=== PATIENT | female | born 1995 | race African-American/Black ===

== ENCOUNTER 2018-08-16 03:49 | Emergency (ER) | payer MEDICAID ==
[~2018-08-16] VITALS: Ht 162.6 cm; Wt 61.6 kg
[2018-08-16 03:51] VITALS: BP 118/70
[2018-08-16] MEDS ORDERED: DIPHTHERIA-TETANUS ADULT 0.5ML IM-VACC ONE (04:00)
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
[2018-08-16] MEDS ORDERED: DIPH,PERTUSS(ACELL),TET VAC/PF 0.5 ML IM-VACC ONE (04:05)
[2018-08-16] MEDS ORDERED: LIDOCAINE-MPF 1%, 2ML ONE (04:46)
--- NOTE | 2018-08-16 04:50 | NUR ---
PT AMB TO BR AND BACK TO ROOM WITH STEADY GAIT.
[2018-08-16] MEDS ORDERED: LIDOCAINE-MPF 1%, 5ML INFIL ONE (05:00)
--- NOTE | 2018-08-16 05:43 | NUR ---
[employer] AT BEDSIDE NOW.
[2018-08-16] MEDS ORDERED: BACITRACIN ZINC OINT 500U/GM, 0.9 GM ONE (05:54)
--- NOTE | 2018-08-16 06:02 | NUR ---
APPLIED BACITRACIN AND BANDAID ON WOUND. PT TOLERATED WELL.
--- NOTE | 2018-08-16 06:04 | NUR ---
PT GIVEN DC INSTRUCTIONS. PT'S AOX4. RESPS EVEN AND UNLABORED. PT AMB TO DC WITH STEADY GAIT. NO ACUTE DISTRESS AT DC.
== END 2018-08-16 06:05 | disposition home or self-care (01) ==
LOC: ED 05:30
DX: S01.81XA Laceration without foreign body of other part of head, initial encounter (principal); Y08.89XA Assault by other specified means, initial encounter; Y93.89 Activity, other specified; Y92.89 Other specified places as the place of occurrence of the external cause; Y99.8 Other external cause status
CPT/HCPCS: 12011; 12051; 90471; 90714; 99285

== ENCOUNTER 2018-08-21 11:34 | Emergency (ER) | payer MEDICAID ==
[~2018-08-21] VITALS: Ht 162.6 cm; Wt 70.0 kg
[2018-08-21 11:36] VITALS: BP 96/54
[2018-08-21] MEDS ORDERED: BACITRACIN ZINC OINT 500U/GM, 0.9 GM ONE (11:56)
== END 2018-08-21 12:03 | disposition home or self-care (01) ==
LOC: ED 11:55
DX: S01.81XD Laceration without foreign body of other part of head, subsequent encounter (principal); X58.XXXD Exposure to other specified factors, subsequent encounter
CPT/HCPCS: 99282

== ENCOUNTER 2019-10-17 09:39 | Emergency (ER) | payer MEDICAID ==
[~2019-10-17] VITALS: Ht 162.6 cm; Wt 74.0 kg
--- NOTE | 2019-10-17 09:55 | NUR ---
patient arrives to ER with n/v and throwing up that began yesterday. she states she is unsure why.
[2019-10-17] MEDS ORDERED: ONDANSETRON ODT 4 MG PO ONE (10:00)
[2019-10-17] MEDS ORDERED: ONDANSETRON ODT 4 MG ONE (10:05)
--- NOTE | 2019-10-17 10:07 | NUR ---
patient mostly refuses to wear mask. asked her politely to please wear a mask as it is our hospital policy. got her a blanket, tissues and medicated as requested. she is unsure of preg status or how many times she has been only aware that she has no children.
[2019-10-17 10:19] LABS: MICROSCOPIC INDICATED
[2019-10-17 10:38] LABS: BASOPHILS # (AUTO) 0.02 x10^3/uL (0-0.1); BASOPHILS % (AUTO) 0 % (0-1); EOSINOPHILS # (AUTO) 0.04 x10^3/uL (0-0.4); EOSINOPHILS % (AUTO) 1 % (1-7); LYMPHOCYTES # (AUTO) 1.51 x10^3/uL (1-3.4); LYMPHOCYTES % (AUTO) 28 % (22-44); MD NO; MEAN CORPUSCULAR HEMOGLOBIN 27.9 pg (27.0-34.8); MEAN CORPUSCULAR HGB CONC 32.8 g/dL (32.4-35.8); MEAN CORPUSCULAR VOLUME 84.8 fL (80-100); MEAN PLATELET VOLUME 9.7 fL (7.4-10.4); MONOCYTES # (AUTO) 0.31 x10^3/uL (0.2-0.8); MONOCYTES % (AUTO) 6 % (2-9); NEUTROPHILS # (AUTO) 3.55 x10^3/uL (1.8-6.8); NEUTROPHILS % (AUTO) 65 % (42-75); PLATELET COUNT 217 x10^3/uL (130-400); RED BLOOD COUNT 5.31 x10^6/uL (3.82-5.3); RED CELL DISTRIBUTION WIDTH 16.7 % (9.6-15.2)
[2019-10-17 10:46] LABS: ALANINE AMINOTRANSFERASE 23 U/L (12-78); ALBUMIN 4.4 g/dL (3.4-5.0); ANION GAP 10 mmol/L (5-15); CALCIUM 9.7 mg/dL (8.5-10.1); CHLORIDE 106 mmol/L (98-107); CREATININE 0.72 mg/dL (0.55-1.02)
[2019-10-17 11:03] LABS: ALKALINE PHOSPHATASE 48 U/L (45-117); BILIRUBIN,TOTAL 0.6 mg/dL (0.2-1.0); TOTAL PROTEIN 8.3 g/dL (6.4-8.2)
--- NOTE | 2019-10-17 11:56 | NUR ---
patient awaiting us
[2019-10-17] MEDS ORDERED: ATOR-2 PO (11:57)
--- NOTE | 2019-10-17 12:57 | NUR ---
PATIENT IN BED AND SIG OTHER IN ROOM. AWAITING ER WORKUP. ZOFRAN HELPED NAUSEA
[2019-10-17 13:12] VITALS: BP 118/78
== END 2019-10-17 13:14 | disposition home or self-care (01) ==
LOC: ED 10:48
DX: O26.891 Other specified pregnancy related conditions, first trimester (principal); O21.9 Vomiting of pregnancy, unspecified; R10.9 Unspecified abdominal pain; Z3A.01 Less than 8 weeks gestation of pregnancy
CPT/HCPCS: 36415; 76801; 80053; 81001; 83690; 84702; 85025; 86901; 99284; Q0162; 84703

== ENCOUNTER 2020-04-07 16:39 | Outpatient (CLI) | payer MEDICAID ==
[~2020-04-07] VITALS: Ht 165.1 cm; Wt 72.7 kg
[~2020-04-07 16:39] MED LIST: ATOR-2 PO
== END 2020-04-07 17:20 | disposition home or self-care (01) ==
LOC: LDOP 16:39
PROVIDERS: ATTEND Obstetrics & Gynecology
DX: Z34.93 Encounter for supervision of normal pregnancy, unspecified, third trimester (principal); Z3A.31 31 weeks gestation of pregnancy
CPT/HCPCS: 59025

== ENCOUNTER 2020-05-14 11:35 | Observation (INO) | payer MEDICAID ==
[~2020-05-14] VITALS: Ht 162.6 cm; Wt 73.1 kg
[2020-05-14 11:55] VITALS: BP 103/50
[2020-05-14] MEDS ORDERED: FLU VACC QS2020-21(6MOS UP)/PF 60MCG/0.5 ML SYR IM-VACC ONE (12:30)
[2020-05-14 12:36] LABS: AMPHETAMINE SCREEN, URINE Negative (Negative); BARBITURATE SCREEN, URINE Negative (Negative); BENZODIAZEPINE SCREEN, URINE Negative (Negative); CANNABINOID SCREEN, URINE Positive (Negative); COCAINE SCREEN, URINE Negative (Negative); METHADONE SCREEN, URINE Negative (Negative); OPIATE SCREEN, URINE Negative (Negative)
[2020-05-14 13:13] LABS: BASOPHILS % (AUTO) 1 % (0-1); EOSINOPHILS % (AUTO) 1 % (1-7); LYMPHOCYTES % (AUTO) 26 % (22-44); MEAN CORPUSCULAR HGB CONC 33.4 g/dL (32.4-35.8); MEAN PLATELET VOLUME 10.8 fL (7.4-10.4); MONOCYTES % (AUTO) 7 % (2-9); NEUTROPHILS % (AUTO) 66 % (42-75); PLATELET COUNT 137 x10^3/uL (130-400); RED BLOOD COUNT 3.81 x10^6/uL (3.82-5.3); RED CELL DISTRIBUTION WIDTH 13.8 % (9.6-15.2)
[2020-05-14 13:21] LABS: ALANINE AMINOTRANSFERASE 16 U/L (12-78); ALBUMIN 2.7 g/dL (3.4-5.0); ANION GAP 7 mmol/L (5-15); CALCIUM 8.5 mg/dL (8.5-10.1); CHLORIDE 108 mmol/L (98-107); CREATININE 0.57 mg/dL (0.55-1.02)
[2020-05-14 13:23] LABS: ALKALINE PHOSPHATASE 102 U/L (45-117); BILIRUBIN,TOTAL 0.1 mg/dL (0.2-1.0); TOTAL PROTEIN 6.1 g/dL (6.4-8.2)
[2020-05-14] MEDS ORDERED: BETAMETHASONE 6 MG/ML, 5ML IM ONE ×2 (13:30→13:34)
[2020-05-14 13:35] LABS: MD SCAN
== END 2020-05-14 15:52 | disposition home or self-care (01) ==
LOC: LDOP 11:35 → LDIP 14:38
PROVIDERS: ADMIT Obstetrics & Gynecology; ATTEND Obstetrics & Gynecology
DX: O36.5930 Maternal care for other known or suspected poor fetal growth, third trimester, not applicable or unspecified (principal); Z3A.36 36 weeks gestation of pregnancy; Z79.899 Other long term (current) drug therapy
CPT/HCPCS: 36415; 59025; 80053; 80307; 82962; 83036; 85025; 96372; G0378; J0702

== ENCOUNTER 2020-05-16 10:16 | Inpatient (IN) | payer MEDICAID ==
[~2020-05-16] VITALS: Ht 162.6 cm; Wt 73.1 kg
[2020-05-16] MEDS ORDERED: OXYTOCIN 30U/ 0.9% NaCL 500ML 500 ML IV PRN (10:30)
[2020-05-16] MEDS ORDERED: TERBUTALINE 1 MG/ML, 1ML SQ PRN (10:30)
[2020-05-16] MEDS: LACTATED RINGERS 1,000 ML IV SCH ×2 (10:30→18:30)
[2020-05-16] MEDS ORDERED: SODIUM CITRATE/CITRIC ACID 30 ML UDC PO PRN (10:30)
[2020-05-16] MEDS ORDERED: FENTANYL PF 100 MCG/2ML IV PRN (10:30)
[2020-05-16] MEDS ORDERED: OXYTOCIN 30U/ 0.9% NaCL 500ML 500 ML IV ONE (10:30)
[2020-05-16] MEDS ORDERED: CALCIUM CARBONATE 500 MG TAB.CHEW PO PRN (10:30)
[2020-05-16] MEDS ORDERED: TERBUTALINE 1 MG/ML, 1ML IVPush PRN (10:30)
[2020-05-16] MEDS ORDERED: METOCLOPRAMIDE 5 MG/ML, 2ML IVPush PRN (10:30)
[2020-05-16] MEDS: D5%-LACTATED RINGERS 1,000 ML IV SCH ×2 (10:30→18:30)
[2020-05-16] MEDS ORDERED: FENTANYL PF 100 MCG/2ML IVPush PRN (10:30)
[2020-05-16 10:59] LABS: BASOPHILS % (AUTO) 0 % (0-1); EOSINOPHILS % (AUTO) 0 % (1-7); LYMPHOCYTES % (AUTO) 12 % (22-44); MEAN CORPUSCULAR HEMOGLOBIN 28.4 pg (27.0-34.8); MEAN CORPUSCULAR HGB CONC 32.2 g/dL (32.4-35.8); MEAN PLATELET VOLUME 11.1 fL (7.4-10.4); MONOCYTES % (AUTO) 4 % (2-9); NEUTROPHILS % (AUTO) 84 % (42-75); PLATELET COUNT 132 x10^3/uL (130-400); RED CELL DISTRIBUTION WIDTH 14.4 % (9.6-15.2)
[2020-05-16 11:01] LABS: MD NO
[2020-05-16] MEDS ORDERED: MISOPROSTOL 25 MCG TABLET ONE ×3 (11:41→21:17)
[2020-05-16] MEDS ORDERED: SODIUM CHLORIDE FLUSH 10ML SYR IVF PRN (12:00)
[2020-05-16 12:22] LABS: AMPHETAMINE SCREEN, URINE Negative (Negative); BARBITURATE SCREEN, URINE Negative (Negative); BENZODIAZEPINE SCREEN, URINE Negative (Negative); CANNABINOID SCREEN, URINE Positive (Negative); COCAINE SCREEN, URINE Negative (Negative); METHADONE SCREEN, URINE Negative (Negative); OPIATE SCREEN, URINE Negative (Negative)
[2020-05-16] MEDS: MISOPROSTOL 25 MCG TABLET VG PRN ×3 (12:42→21:34)
[2020-05-16] MEDS ORDERED: NEWBORN KIT ONE (13:16)
[2020-05-16] MEDS ORDERED: OXYTOCIN 30U/ 0.9% NaCL 500ML 500 ML ONE (13:17)
[2020-05-16 19:45] VITALS: BP 107/59
[2020-05-16] MEDS ORDERED: ONDANSETRON 2MG/ML, 2ML ONE (22:05)
[2020-05-16] MEDS: ONDANSETRON 2MG/ML, 2ML IVPush PRN (22:07)
[2020-05-17] MEDS ORDERED: LIDOCAINE 1%, 20ML ONE (06:07)
[2020-05-17] MEDS ORDERED: MISOPROSTOL 200 MCG TABLET ONE ×2 (06:07→18:07)
[2020-05-17] MEDS ORDERED: OXYTOCIN 30U/ 0.9% NaCL 500ML 500 ML IV PRN (07:00)
[2020-05-17] MEDS ORDERED: FENTANYL/BUPIV./NS/PF 250 ML EPIDCONT ONE (15:29)
[2020-05-17] MEDS ORDERED: BUPIVACAINE 0.25% ONE (15:29)
[2020-05-17] MEDS ORDERED: ONDANSETRON 2MG/ML, 2ML IVPush PRN (16:00)
[2020-05-17] MEDS ORDERED: NALOXONE 0.4 MG/ML, 1ML IVPush PRN (16:00)
[2020-05-17] MEDS ORDERED: EPHEDRINE 50 MG/ML, 1ML IVPush PRN (16:00)
[2020-05-17] MEDS ORDERED: DIPHENHYDRAMINE 50 MG/ML, 1ML IVPush PRN (16:00)
[2020-05-17] MEDS ORDERED: LACTATED RINGERS 1,000 ML IVBOLUS PRN (16:00)
[2020-05-17] MEDS ORDERED: LACTATED RINGERS 1,000 ML IV SCH (16:00)
[2020-05-17] MEDS ORDERED: FENTANYL/BUPIV./NS/PF 250 ML EPIDCONT SCH (16:00)
[2020-05-17] MEDS: ONDANSETRON 2MG/ML, 2ML IVPush PRN (19:03)
[2020-05-17] MEDS: LACTATED RINGERS 1,000 ML IV SCH (19:50)
[2020-05-18] MEDS: ONDANSETRON 2MG/ML, 2ML IVPush PRN (01:49)
[2020-05-18 06:10] VITALS: BP 127/73
[2020-05-18] MEDS: OXYTOCIN 30U/ 0.9% NaCL 500ML 500 ML IV SCH ×2 (06:30→16:30)
[2020-05-18] MEDS ORDERED: ONDANSETRON 2MG/ML, 2ML IV PRN (06:30)
[2020-05-18] MEDS ORDERED: HYDROcodone/APAP 5/325 TABLET PO PRN ×2 (06:30)
[2020-05-18] MEDS ORDERED: SIMETHICONE 80 MG CHEW TAB PO PRN (06:30)
[2020-05-18] MEDS: PRENATAL VIT/IRON/FA 1 EACH TABLET PO SCH (08:35)
[2020-05-18 11:53] LABS: BASOPHILS % (AUTO) 0 % (0-1); EOSINOPHILS % (AUTO) 1 % (1-7); LYMPHOCYTES % (AUTO) 15 % (22-44); MEAN CORPUSCULAR HEMOGLOBIN 28.4 pg (27.0-34.8); MEAN PLATELET VOLUME 11.5 fL (7.4-10.4); MONOCYTES % (AUTO) 10 % (2-9); NEUTROPHILS % (AUTO) 74 % (42-75); PLATELET COUNT 153 x10^3/uL (130-400); RED BLOOD COUNT 3.94 x10^6/uL (3.82-5.3); RED CELL DISTRIBUTION WIDTH 13.9 % (9.6-15.2)
[2020-05-18 12:10] LABS: MD SCAN
[2020-05-18 14:30] VITALS: BP 110/70
[2020-05-18 20:00] VITALS: BP 125/80
[2020-05-18] MEDS: DOCUSATE 100 MG CAPSULE PO PRN (20:02)
[2020-05-18] MEDS: IBUPROFEN 600 MG TABLET PO PRN (20:02)
[2020-05-19] MEDS: OXYTOCIN 30U/ 0.9% NaCL 500ML 500 ML IV SCH ×2 (02:30→12:30)
[2020-05-19 08:05] VITALS: BP 127/88
[2020-05-19] MEDS: DOCUSATE 100 MG CAPSULE PO PRN (09:01)
[2020-05-19] MEDS: PRENATAL VIT/IRON/FA 1 EACH TABLET PO SCH (09:01)
[2020-05-19] MEDS: IBUPROFEN 600 MG TABLET PO PRN (09:01)
[2020-05-19] MEDS ORDERED: OXYC1TAB14 PO (14:03)
[2020-05-19] MEDS ORDERED: IBUP-1223 PO (14:04)
== END 2020-05-19 14:10 | disposition home or self-care (01) | DRG 807 ==
LOC: LDIP 10:16 → 2NW 05-18 05:43
PROVIDERS: ADMIT Obstetrics & Gynecology; ATTEND Obstetrics & Gynecology
PROC: 3E033VJ Introduction of Other Hormone into Peripheral Vein, Percutaneous Approach (ICD-10-PCS; principal; 2020-05-18)
PROC: 10E0XZZ Delivery of Products of Conception, External Approach (ICD-10-PCS; 2020-05-18)
PROC: 3E0R3BZ Introduction of Anesthetic Agent into Spinal Canal, Percutaneous Approach (ICD-10-PCS; 2020-05-18)
PROC: 00HU33Z Insertion of Infusion Device into Spinal Canal, Percutaneous Approach (ICD-10-PCS; 2020-05-18)
DX: O36.5930 Maternal care for other known or suspected poor fetal growth, third trimester, not applicable or unspecified (principal); Z37.0 Single live birth; Z20.822 Contact with and (suspected) exposure to COVID-19; Z3A.37 37 weeks gestation of pregnancy
CPT/HCPCS: 36415; 80307; 82962; 85025; 86592; 86850; 86900; 87635; 88305; G0378; J2405; J2590; J7120